=== PATIENT | male | born 1975 | race Caucasian/White ===

== ENCOUNTER 2022-05-18 13:11 | Emergency (ER) | payer OTHER ==
[2022-05-18] MEDS ORDERED: Dexamethasone 10 MG/ML VIAL ONE (13:59)
[2022-05-18] MEDS ORDERED: Lidocaine 4% Cream 5 GM TUBE w/ Tegaderm ONE (14:00)
[2022-05-18] MEDS ORDERED: Lidocaine Viscous Sol 2% 15 ml UD Cup ONE (14:12)
== END 2022-05-18 15:50 | disposition home or self-care (01) ==
LOC: ERS 13:11
DX: M79.2 Neuralgia and neuritis, unspecified (principal); F17.210 Nicotine dependence, cigarettes, uncomplicated; Z79.899 Other long term (current) drug therapy
CPT/HCPCS: 96372; 99283; J1100